=== PATIENT | male | born 1950 | race Caucasian/White ===

== ENCOUNTER 2025-02-23 00:30 | Inpatient (IN) | payer MEDICARE ==
[~2025-02-23] VITALS: Ht 182.9 cm; Wt 109.8 kg
[2025-02-23] VITALS (79 sets, daily range): BP systolic 101–141; BP diastolic 56–94; PULSE 64–88; RESP 10–24; TEMP 36.114–37.39188; O2SAT 91–99
[2025-02-23] MEDS: SODIUM CHLORIDE 0.9% 500 ML IV ONE (01:21)
[2025-02-23] MEDS: ACETAMINOPHEN 325MG TABLET PO ONE (01:31)
[2025-02-23 02:29] LABS: CREATININE 1.4 mg/dL (0.6-1.3); INR 1.1
[2025-02-23 02:30] LABS: UREA NITROGEN BLOOD 18 mg/dL (9-23)
[2025-02-23 02:31] LABS: ASPARTATE AMINOTRANSFERASE 31 IU/L (<34); BILIRUBIN DIRECT 0.4 mg/dL (<=3.0); TROPONIN I HIGH SENSITIVITY 8 ng/L (3.0-53)
[2025-02-23 02:32] LABS: BILIRUBIN TOTAL 1.2 mg/dL (0.1-1.0); PROTEIN TOTAL 6.3 g/dL (6.0-8.3)
[2025-02-23] MEDS: LEVETIRACETAM 500MG PREMIX 100 ML IV NR ×2 (03:06→09:11)
[2025-02-23] MEDS: HUMAN-LANS PROTHROMBIN CPLX (PCC) 1000 UNITS VIAL IV NR (03:41)
[2025-02-23] MEDS ORDERED: POTASSIUM CHLORIDE 40 MEQ in DEXT 5% WATER 230 ML IV ONE ×2 (03:45→11:30)
[2025-02-23] MEDS ORDERED: ONDANSETRON HCL 4MG/2ML INJ IV PRN (03:45)
[2025-02-23] MEDS ORDERED: DEXTROSE 50% WATER 50ML SYRINGE IV PRN (03:45)
[2025-02-23] MEDS ORDERED: DOCUSATE SODIUM 100MG CAPSULE PO PRN (03:45)
[2025-02-23] MEDS ORDERED: MAGNESIUM/ALUMINUM HYDROXIDE/SIMETHICONE 30ML UDC PO PRN (03:45)
[2025-02-23] MEDS ORDERED: GUAIFENESIN 200MG/10ML SUGAR FREE UDC PO PRN (03:45)
[2025-02-23 03:47] LABS: INFLUENZA TYPE A Presumptive Negative (Pres. Neg.)
[2025-02-23 03:48] LABS: INFLUENZA TYPE B Presumptive Negative (Pres. Neg.)
[2025-02-23 04:17] LABS: BASOPHILS % 0.1 % (0.0-2.0); EOSINOPHILS % 0.0 % (0.0-5.0); HEMATOCRIT. 41.1 % (42.0-52.0); HEMOGLOBIN. 13.6 g/dL (14.0-18.0); LYMPHOCYTES % 7.8 % (20.0-50.0); MEAN PLATELET VOLUME 6.2 fl (7.4-10.4); MONOCYTES % 14.6 % (2.0-8.0); NEUTROPHILS % 77.5 % (40.0-76.0); PLATELET 125 x1000/uL (130-400); RED BLOOD CELL COUNT 4.21 mill/uL (4.7-6.1); RED CELL DISTRIBUTION WIDTH 14.7 % (11.6-14.6)
[2025-02-23 04:35] LABS: TROPONIN I HIGH SENSITIVITY 9 ng/L (3.0-53)
[2025-02-23 04:36] LABS: PHOSPHORUS 4.1 mg/dL (2.5-4.9)
[2025-02-23] MEDS: KCL 20MEQ/100ML X 2 FOR TOTAL KCL 40MEQ/200ML IV SCH ×2 (05:04→12:36)
[2025-02-23] MEDS: POTASSIUM CHLORIDE 20MEQ TABLET SR PO NR (05:05)
[2025-02-23] MEDS: LACTATED RINGERS 1,000 ML IV ONE (05:05)
[2025-02-23] MEDS: BLOOD SUGAR DIAGNOSTIC STRIP TEST SCH (06:20)
[2025-02-23] MEDS: INSULIN LISPRO 100 UNITS/ML SUBCUT SCH (06:21)
[2025-02-23] MEDS: LACTATED RINGERS 1,000 ML IV SCH (07:07)
[2025-02-23] MEDS: DEXAMETHASONE 4MG/ML 1ML VIAL IV SCH (07:07)
[2025-02-23] MEDS ORDERED: LEVETIRACETAM 500MG in NACL 100ML PREMIX IV SCH ×2 (08:15→09:00)
[2025-02-23 08:24] LABS: CLARITY URINE CLEAR (CLEAR); COLOR URINE YELLOW (YELLOW); GLUCOSE URINE 3+ (NEGATIVE); KETONES URINE 1+ (NEGATIVE); LEUKOCYTE ESTERASE URINE NEGATIVE (NEGATIVE); NITRITE URINE NEGATIVE (NEGATIVE); OCCULT BLOOD URINE 1+ (NEGATIVE); PH URINE 6.0 (4.5-8.0); PROTEIN URINE 1+ (NEGATIVE); SPECIFIC GRAVITY URINE 1.030 (1.005-1.030); UROBILINOGEN URINE 0.2 E.U./dL (0.2-1.0)
[2025-02-23 08:38] LABS: *AMPHETAMINES SCREEN URINE NEGATIVE (NEGATIVE); *BENZODIAZEPINES SCREEN URINE NEGATIVE (NEGATIVE)
[2025-02-23 08:39] LABS: *BARBITURATES SCREEN URINE NEGATIVE (NEGATIVE); *COCAINE SCREEN URINE NEGATIVE (NEGATIVE); CANNABINOID URINE SCREEN NEGATIVE (NEGATIVE); ECSTASY MDMA SCREEN URINE NEGATIVE (NEGATIVE); METHADONE URINE SCREEN NEGATIVE (NEGATIVE); OPIATES URINE SCREEN NEGATIVE (NEGATIVE); PHENCYCLIDINE URINE SCREEN NEGATIVE (NEGATIVE)
[2025-02-23 08:47] LABS: SQUAMOUS EPITHELIAL CELL URINE NONE SEEN /lpf (RARE/1+)
[2025-02-23 08:48] LABS: BACTERIA URINE NONE SEEN; RBC URINE 0-2 /hpf (0-2); WBC URINE 0-2 /hpf (0-2); YEAST URINE FEW
[2025-02-23] MEDS ORDERED: HUMAN-LANS PROTHROMBIN CPLX (PCC) 1000 UNITS VIAL IV NR (09:00)
[2025-02-23] MEDS ORDERED: LEVETIRACETAM 1,000MG in NACL 100ML PREMIX IV SCH (09:00)
[2025-02-23] MEDS ORDERED: LEVETIRACETAM 500MG PREMIX 100 ML IV SCH (09:00)
[2025-02-23] MEDS: PANTOPRAZOLE SODIUM 40 MG/VIAL IV SCH (09:11)
[2025-02-23] MEDS: LEVETIRACETAM 500MG PREMIX 100 ML IV SCH (09:11)
[2025-02-23 10:39] LABS: HEMATOCRIT. 40.5 % (42.0-52.0); HEMOGLOBIN. 13.6 g/dL (14.0-18.0); MEAN PLATELET VOLUME 6.3 fl (7.4-10.4); PLATELET 122 x1000/uL (130-400); RED BLOOD CELL COUNT 4.11 mill/uL (4.7-6.1); RED CELL DISTRIBUTION WIDTH 14.7 % (11.6-14.6)
[2025-02-23 10:59] LABS: CREATININE 1.1 mg/dL (0.6-1.3); TRIGLYCERIDE 117 mg/dL (0-150); UREA NITROGEN BLOOD 21 mg/dL (9-23)
[2025-02-23 11:00] LABS: LDL CHOLESTEROL 41 mg/dL (5-100)
[2025-02-23 11:03] LABS: T4 FREE 1.19 ng/dL (0.89-1.76)
[2025-02-23] MEDS ORDERED: PIOG45TA62 MT (14:19)
[2025-02-23] MEDS ORDERED: APIX5TAB MT (14:19)
[2025-02-23] MEDS ORDERED: ATOR-2 MT (14:19)
[2025-02-23] MEDS ORDERED: EMPA10TA MT (14:19)
[2025-02-23] MEDS ORDERED: DILT240C96 PO (14:19)
[2025-02-23] MEDS ORDERED: CHLO25TA2 MT (14:19)
[2025-02-23] MEDS ORDERED: CHOL200016 (14:19)
[2025-02-23] MEDS ORDERED: LATA2.5D7 EACHEYE (14:19)
[2025-02-23] MEDS ORDERED: EZET10TA81 MT (14:19)
[2025-02-23] MEDS ORDERED: OMEG100036 MT (14:19)
[2025-02-23] MEDS ORDERED: POTA15TA PO (14:19)
[2025-02-23] MEDS ORDERED: FAMO20TA8 MT (14:19)
[2025-02-23] MEDS ORDERED: GABA-1180 MT (14:19)
[2025-02-23] MEDS ORDERED: CYAN10003 SL (14:19)
[2025-02-23] MEDS ORDERED: SITA100T11 MT (14:19)
[2025-02-23] MEDS ORDERED: MIRA25TA MT (14:19)
[2025-02-23 17:03] LABS: INR 1.0
[2025-02-23 21:03] LABS: BAND% 1.0 % (1.0-6.0); LYMPHOCYTES % MANUAL 15.0 % (20.0-50.0); MONOCYTES % MANUAL 13.0 % (2.0-8.0); NEUTROPHILS % MANUAL 71.0 % (45.0-75.0); PLATELET ESTIMATE DECREASED
[2025-02-23] MEDS: IPRATROPIUM/ALBUTEROL 0.5-3(2.5)MG/3ML NEB HHN SCH (21:37)
[2025-02-24] VITALS (83 sets, daily range): BP systolic 111–143; BP diastolic 58–108; PULSE 60–98; RESP 14–30; TEMP 36.5–37; O2SAT 87–97
[2025-02-24] MEDS: KCL 20MEQ/100ML PREMIX 100 ML IV NR (01:54)
[2025-02-24] MEDS ORDERED: THROMBIN (BOVINE) 5000 UNITS/VIAL TOP ONE ×2 (06:11→08:09)
[2025-02-24] MEDS ORDERED: LIDOCAINE HCL/EPINEPHRINE 1%-EPI 1:100,000 20ML VIAL ONE (06:12)
[2025-02-24] MEDS ORDERED: GENTAMICIN SULF 40MG/ML 2ML VIAL ONE (06:12)
[2025-02-24] MEDS ORDERED: BACITRACIN 14GM TUBE TOP ONE (06:12)
[2025-02-24 06:16] LABS: BASOPHILS % 0.2 % (0.0-2.0); EOSINOPHILS % 0.0 % (0.0-5.0); HEMATOCRIT. 40.2 % (42.0-52.0); HEMOGLOBIN. 13.1 g/dL (14.0-18.0); LYMPHOCYTES % 7.2 % (20.0-50.0); MEAN PLATELET VOLUME 6.3 fl (7.4-10.4); MONOCYTES % 9.0 % (2.0-8.0); NEUTROPHILS % 83.6 % (40.0-76.0); PLATELET 142 x1000/uL (130-400); RED BLOOD CELL COUNT 4.03 mill/uL (4.7-6.1); RED CELL DISTRIBUTION WIDTH 14.7 % (11.6-14.6)
[2025-02-24 06:38] LABS: CREATININE 1.0 mg/dL (0.6-1.3)
[2025-02-24 06:39] LABS: UREA NITROGEN BLOOD 26 mg/dL (9-23)
[2025-02-24] MEDS ORDERED: ETOMIDATE 2MG/ML 10ML VIAL IV ONE (06:59)
[2025-02-24] MEDS ORDERED: FENTANYL CITRATE/PF 50MCG/ML 2ML VIAL ONE (06:59)
[2025-02-24] MEDS ORDERED: MIDAZOLAM HCL 2 MG/2 ML VIAL ONE (06:59)
[2025-02-24] MEDS ORDERED: PROPOFOL 200MG/20ML VIAL IV ONE ×2 (06:59→07:41)
[2025-02-24] MEDS ORDERED: DEXAMETHASONE 4MG/ML 1ML VIAL ONE (06:59)
[2025-02-24] MEDS ORDERED: ONDANSETRON HCL 4MG/2ML INJ ONE (06:59)
[2025-02-24] MEDS ORDERED: ROCURONIUM BROMIDE 10MG/ML VIAL 5ML IV ONE (07:10)
[2025-02-24] MEDS ORDERED: CLINDAMYCIN 900MG PREMIX 50 ML IV ONE (07:36)
[2025-02-24] MEDS ORDERED: HYDROMORPHONE HCL/PF 2MG/ML INJ ONE (07:47)
[2025-02-24] MEDS ORDERED: PHENYTOIN SODIUM 100MG/2ML VIAL IV ONE (08:17)
[2025-02-24] MEDS: CLINDAMYCIN 600 MG in DEXTROSE 5% WATER 50 ML IV SCH (08:45)
[2025-02-24] MEDS: MORPHINE SULFATE 4 MG/ML INJ (FOR IV/IM USE) IV PRN (09:36)
[2025-02-24] MEDS ORDERED: NALOXONE HCL 0.4MG/ML VIAL IV PRN (09:45)
[2025-02-24] MEDS: DEXT 5%/LACTATED RINGERS 1,000 ML IV SCH (09:56)
[2025-02-24] MEDS: NICARDIPINE 100 MG in SODIUM CHLORIDE 0.9% 60 ML IV PRN (09:57)
[2025-02-24] MEDS ORDERED: NALOXONE HCL 0.4MG/ML 1ML VIAL IV SCH (10:15)
[2025-02-24 10:25] LABS: BG BASE EXCESS -3.0 mmol/L (-2.0-3.0); BG CARBOXYHEMOGLOBIN 1.1 % (0.5-1.5); BG DEOXYHEMOGLOBIN 4.8 % (0.0-5.0); BG FLOW(L/min) 15.00 L/min; BG FRACTION INSPIRED OXYGEN 80; BG HCO3 ACT 21.3 mmol/L (21.0-28.0); BG METHEMOGLOBIN 0.3 % (0.5-1.5); BG OXYGEN SATURATION 95.1 % (94.0-98.0); BG OXYHEMOGLOBIN 93.8 % (94.0-98.0); BG PCO2 35.9 mmHg (35.0-48.0); BG PH 7.391 (7.350-7.450); BG PO2 81.0 mmHg (83.0-108.0); BG SAMPLE SITE ALINE; BG TOTAL HEMOGLOBIN 14.0 g/dL (13.5-17.5); BG VENT MODE MASK - PARTIAL NRB
[2025-02-24] MEDS ORDERED: ALBUTEROL 6.7GM HFA INHALER ONE (12:20)
[2025-02-24] MEDS ORDERED: ALBUTEROL (0.083%) 2.5MG/3ML NEB ONE (12:22)
[2025-02-24] MEDS: CLINDAMYCIN 600MG PREMIX 50 ML IV SCH (15:24)
[2025-02-24] MEDS: PHENYTOIN SODIUM 100MG/2ML VIAL IV SCH (15:24)
[2025-02-25] VITALS (92 sets, daily range): BP systolic 113–143; BP diastolic 60–105; PULSE 71–99; RESP 14–30; TEMP 36.5–36.8; O2SAT 88–99
[2025-02-25 05:45] LABS: HEMATOCRIT. 39.7 % (42.0-52.0); HEMOGLOBIN. 13.2 g/dL (14.0-18.0); MEAN PLATELET VOLUME 6.2 fl (7.4-10.4); PLATELET 171 x1000/uL (130-400); RED BLOOD CELL COUNT 4.00 mill/uL (4.7-6.1); RED CELL DISTRIBUTION WIDTH 15.2 % (11.6-14.6)
[2025-02-25 05:56] LABS: CREATININE 1.0 mg/dL (0.6-1.3); UREA NITROGEN BLOOD 32 mg/dL (9-23)
[2025-02-25 05:58] LABS: PHOSPHORUS 2.5 mg/dL (2.5-4.9)
[2025-02-25 09:13] LABS: BAND% 4.0 % (1.0-6.0); LYMPHOCYTES % MANUAL 5.0 % (20.0-50.0); MONOCYTES % MANUAL 12.0 % (2.0-8.0); NEUTROPHILS % MANUAL 79.0 % (45.0-75.0); NUCLEATED RED BLOOD CELLS 1 /100 WBC; PLATELET ESTIMATE NORMAL
[2025-02-25 10:03] LABS: BG BASE EXCESS 2.2 mmol/L (-2.0-3.0); BG CARBOXYHEMOGLOBIN 0.9 % (0.5-1.5); BG DEOXYHEMOGLOBIN 9.4 % (0.0-5.0); BG FLOW(L/min) 6.00 L/min; BG FRACTION INSPIRED OXYGEN 44; BG HCO3 ACT 25.6 mmol/L (21.0-28.0); BG METHEMOGLOBIN 0.3 % (0.5-1.5); BG OXYGEN SATURATION 90.5 % (94.0-98.0); BG OXYHEMOGLOBIN 89.4 % (94.0-98.0); BG PCO2 36.0 mmHg (35.0-48.0); BG PH 7.470 (7.350-7.450); BG PO2 55.9 mmHg (83.0-108.0); BG SAMPLE SITE RIGHT RADIAL; BG TOTAL HEMOGLOBIN 14.3 g/dL (13.5-17.5); BG VENT MODE NASAL CANNULA
[2025-02-25] MEDS: POTASSIUM CHLORIDE 20MEQ/PACKET PO SCH (12:00)
[2025-02-25] MEDS: DEXAMETHASONE 4MG/ML 1ML VIAL IV SCH (12:40)
[2025-02-25] MEDS: IPRATROPIUM/ALBUTEROL 0.5-3(2.5)MG/3ML NEB HHN SCH (14:11)
[2025-02-26] VITALS (67 sets, daily range): BP systolic 119–153; BP diastolic 62–78; PULSE 89–113; RESP 15–29; TEMP 36.5–36.9; O2SAT 90–97
[2025-02-26] MEDS: KCL 20MEQ/100ML PREMIX 100 ML IV SCH (10:42)
[2025-02-26] MEDS ORDERED: POLYMYXIN B SULFATE 500000 UNITS/VIAL ONE (12:14)
[2025-02-26] MEDS ORDERED: THROMBIN (BOVINE) 5000 UNITS/VIAL TOP ONE (12:14)
[2025-02-26] MEDS ORDERED: GENTAMICIN SULF 40MG/ML 2ML VIAL ONE (12:15)
[2025-02-26] MEDS ORDERED: LIDOCAINE HCL/EPINEPHRINE 1%-EPI 1:100,000 20ML VIAL ONE (12:15)
[2025-02-26 12:28] LABS: PLATELET 195 x1000/uL (130-400); RED BLOOD CELL COUNT 4.40 mill/uL (4.7-6.1); RED CELL DISTRIBUTION WIDTH 15.1 % (11.6-14.6)
[2025-02-26 12:32] LABS: CREATININE 0.9 mg/dL (0.6-1.3); UREA NITROGEN BLOOD 37 mg/dL (9-23)
[2025-02-26] MEDS ORDERED: PROPOFOL 200MG/20ML VIAL IV ONE ×2 (12:55→14:19)
[2025-02-26] MEDS ORDERED: LIDOCAINE HCL 1% 10 MG/ML 10ML VIAL ONE (12:55)
[2025-02-26] MEDS ORDERED: ACETAMINOPHEN 1000MG/100ML 100 ML IV ONE (12:56)
[2025-02-26] MEDS ORDERED: ROCURONIUM BROMIDE 10MG/ML VIAL 5ML IV ONE ×2 (12:56→14:03)
[2025-02-26] MEDS ORDERED: CLINDAMYCIN 900MG PREMIX 50 ML IV ONE (12:56)
[2025-02-26] MEDS ORDERED: PHENYLEPHRINE HCL 10MG/ML 1ML IV ONE (13:00)
[2025-02-26] MEDS ORDERED: FENTANYL CITRATE/PF 50MCG/ML 2ML VIAL ONE ×2 (13:06→14:01)
[2025-02-26] MEDS ORDERED: NICARDIPINE 40MG/200ML PREMIX 200 ML IV ONE (13:22)
[2025-02-26] MEDS ORDERED: BACITRACIN 14GM TUBE TOP ONE (13:56)
[2025-02-26] MEDS ORDERED: ONDANSETRON HCL 4MG/2ML INJ ONE (14:57)
[2025-02-26] MEDS: CLINDAMYCIN 600MG PREMIX 50 ML IV SCH (17:44)
[2025-02-26] MEDS ORDERED: MANNITOL 20% (20GM/100ML) BAG 500ML PREMIX IV ONE (19:45)
[2025-02-26] MEDS: DEXAMETHASONE 10 MG/ML VIAL IV SCH (19:50)
[2025-02-26] MEDS: MANNITOL 20% 125 ML IV SCH (21:20)
[2025-02-27] VITALS (93 sets, daily range): BP systolic 110–150; BP diastolic 56–85; PULSE 88–137; RESP 16–45; TEMP 36.4–36.9; O2SAT 89–99
[2025-02-27 05:36] LABS: HEMATOCRIT. 41.8 % (42.0-52.0); HEMOGLOBIN. 14.0 g/dL (14.0-18.0); MEAN PLATELET VOLUME 6.2 fl (7.4-10.4); PLATELET 232 x1000/uL (130-400); RED BLOOD CELL COUNT 4.19 mill/uL (4.7-6.1); RED CELL DISTRIBUTION WIDTH 15.7 % (11.6-14.6)
[2025-02-27 05:42] LABS: CREATININE 1.0 mg/dL (0.6-1.3); PHENYTOIN 5.1 ug/mL (10-20); UREA NITROGEN BLOOD 39 mg/dL (9-23)
[2025-02-27] MEDS ORDERED: DEXTROSE 50% WATER 50ML SYRINGE IV PRN (08:30)
[2025-02-27] MEDS ORDERED: LIDOCAINE HCL 1% 20ML VIAL ONE (08:37)
[2025-02-27 10:54] LABS: BAND% 3.0 % (1.0-6.0); EOSINOPHILS % MANUAL 1.0 % (0.0-5.0); LYMPHOCYTES % MANUAL 11.0 % (20.0-50.0); MONOCYTES % MANUAL 4.0 % (2.0-8.0); NEUTROPHILS % MANUAL 81.0 % (45.0-75.0); PLATELET ESTIMATE NORMAL
[2025-02-27] MEDS: PHENYTOIN SODIUM 500 MG in SODIUM CHLORIDE 0.9% 50 ML IV NR (11:38)
[2025-02-27] MEDS: BLOOD SUGAR DIAGNOSTIC STRIP TEST SCH (12:00)
[2025-02-27] MEDS: INSULIN LISPRO 100 UNITS/ML SUBCUT SCH (12:05)
[2025-02-27 17:14] LABS: BG BASE EXCESS 1.4 mmol/L (-2.0-3.0); BG CARBOXYHEMOGLOBIN 0.3 % (0.5-1.5); BG DEOXYHEMOGLOBIN 0.9 % (0.0-5.0); BG FLOW(L/min) 15.00 L/min; BG FRACTION INSPIRED OXYGEN 100; BG HCO3 ACT 24.2 mmol/L (21.0-28.0); BG METHEMOGLOBIN 0.0 % (0.5-1.5); BG OXYGEN SATURATION 99.1 % (94.0-98.0); BG OXYHEMOGLOBIN 98.8 % (94.0-98.0); BG PCO2 33.0 mmHg (35.0-48.0); BG PH 7.484 (7.350-7.450); BG PO2 153.6 mmHg (83.0-108.0); BG SAMPLE SITE ALINE; BG TOTAL HEMOGLOBIN 13.1 g/dL (13.5-17.5); BG VENT MODE MASK - NRB
[2025-02-28] VITALS (111 sets, daily range): BP systolic 115–206; BP diastolic 55–70; PULSE 103–135; RESP 14–36; TEMP 36.7–37.6; O2SAT 77–98
[2025-02-28] MEDS: INSULIN LISPRO 100 UNITS/ML SUBCUT SCH ×2 (01:09→13:41)
[2025-02-28 05:09] LABS: HEMATOCRIT. 40.9 % (42.0-52.0); HEMOGLOBIN. 13.3 g/dL (14.0-18.0); MEAN PLATELET VOLUME 6.5 fl (7.4-10.4); PLATELET 199 x1000/uL (130-400); RED BLOOD CELL COUNT 4.08 mill/uL (4.7-6.1); RED CELL DISTRIBUTION WIDTH 16.5 % (11.6-14.6)
[2025-02-28 05:29] LABS: CREATININE 1.2 mg/dL (0.6-1.3); UREA NITROGEN BLOOD 41 mg/dL (9-23)
[2025-02-28 05:31] LABS: PHOSPHORUS 1.7 mg/dL (2.5-4.9)
[2025-02-28] MEDS ORDERED: PROPOFOL 10MG/ML 100ML 100 ML IV PRN (08:00)
[2025-02-28] MEDS ORDERED: DEXTROSE 50% WATER 50ML SYRINGE IV PRN (09:00)
[2025-02-28] MEDS: METHYLPREDNISOLONE SOD SUCC 125MG/2ML (ACT-O-VIAL) IV SCH (09:56)
[2025-02-28 09:57] LABS: BG BASE EXCESS 1.5 mmol/L (-2.0-3.0); BG CARBOXYHEMOGLOBIN 0.7 % (0.5-1.5); BG DEOXYHEMOGLOBIN 4.2 % (0.0-5.0); BG FRACTION INSPIRED OXYGEN 100; BG HCO3 ACT 26.9 mmol/L (21.0-28.0); BG METHEMOGLOBIN 0.3 % (0.5-1.5); BG OXYGEN SATURATION 95.8 % (94.0-98.0); BG OXYHEMOGLOBIN 94.8 % (94.0-98.0); BG PCO2 45.0 mmHg (35.0-48.0); BG PEEP (cmH2O) 5.0 cmH2O; BG PH 7.394 (7.350-7.450); BG PO2 82.7 mmHg (83.0-108.0); BG SAMPLE SITE RIGHT RADIAL; BG TIDAL VOLUME(mL) 450.0 mL; BG TOTAL HEMOGLOBIN 14.7 g/dL (13.5-17.5); BG VENT MODE VENT - AC; BG VENT RATE 18.0 set
[2025-02-28] MEDS ORDERED: MORPHINE SULFATE 4 MG/ML INJ (FOR IV/IM USE) IV NR (10:15)
[2025-02-28] MEDS ORDERED: MORPHINE SULFATE 10 MG/ML INJ (NOT FOR IM USE) IV ONE (10:15)
[2025-02-28] MEDS: MORPHINE SULFATE 4 MG/ML INJ (FOR IV/IM USE) IV NR (11:43)
[2025-02-28] MEDS: CLINDAMYCIN 600MG PREMIX 50 ML IV SCH (13:39)
[2025-02-28 13:50] LABS: BAND% 27.0 % (1.0-6.0); LYMPHOCYTES % MANUAL 10.0 % (20.0-50.0); METAMYELOCYTES % 1.0 % (0-0); MONOCYTES % MANUAL 7.0 % (2.0-8.0); MYELOCYTES % 1.0 % (0-0); NEUTROPHILS % MANUAL 54.0 % (45.0-75.0); NUCLEATED RED BLOOD CELLS 1 /100 WBC; PLATELET ESTIMATE NORMAL
[2025-02-28] MEDS: ACETAMINOPHEN 325MG TABLET PO PRN (14:31)
[2025-02-28] MEDS: CLONIDINE 0.1MG TABLET PO PRN (14:32)
[2025-02-28] MEDS: CLINDAMYCIN 600 MG in DEXTROSE 5% WATER 50 ML IV SCH (20:33)
[2025-03-01] VITALS (109 sets, daily range): BP systolic 133–176; BP diastolic 59–79; PULSE 101–126; RESP 20–56; TEMP 37.1–37.4; O2SAT 93–98
[2025-03-01] MEDS ORDERED: INSULIN LISPRO 100 UNITS/ML SUBCUT SCH
[2025-03-01] MEDS: INSULIN LISPRO 100 UNITS/ML SUBCUT SCH (05:27)
[2025-03-01 08:04] LABS: PLATELET 121 x1000/uL (130-400); RED BLOOD CELL COUNT 4.15 mill/uL (4.7-6.1); RED CELL DISTRIBUTION WIDTH 17.5 % (11.6-14.6)
[2025-03-01 08:26] LABS: CREATININE 1.3 mg/dL (0.6-1.3); UREA NITROGEN BLOOD 39.0 mg/dL (9-23)
[2025-03-01 09:35] LABS: BG BASE EXCESS 3.6 mmol/L (-2.0-3.0); BG CARBOXYHEMOGLOBIN 1.0 % (0.5-1.5); BG DEOXYHEMOGLOBIN 1.0 % (0.0-5.0); BG FRACTION INSPIRED OXYGEN 90; BG HCO3 ACT 29.5 mmol/L (21.0-28.0); BG METHEMOGLOBIN 0.3 % (0.5-1.5); BG OXYGEN SATURATION 99.0 % (94.0-98.0); BG OXYHEMOGLOBIN 97.7 % (94.0-98.0); BG PCO2 49.2 mmHg (35.0-48.0); BG PEEP (cmH2O) 8.0 cmH2O; BG PH 7.395 (7.350-7.450); BG PO2 142.8 mmHg (83.0-108.0); BG SAMPLE SITE RIGHT RADIAL; BG TIDAL VOLUME(mL) 450.0 mL; BG TOTAL HEMOGLOBIN 14.1 g/dL (13.5-17.5); BG VENT MODE VENT - AC; BG VENT RATE 18.0 set
[2025-03-01] MEDS ORDERED: NALOXONE HCL 0.4MG/ML VIAL IV PRN (11:00)
[2025-03-01] MEDS: MORPHINE SULFATE 4 MG/ML INJ (FOR IV/IM USE) IV PRN (11:35)
[2025-03-01] MEDS: DEXT 5%/0.45% NACL 1000ML 1,000 ML IV SCH (13:02)
[2025-03-01 16:07] LABS: SODIUM URINE RANDOM < 10 mEq/L
[2025-03-01 16:17] LABS: OSMOLALITY URINE 499 mOsm/kg (500-850)
[2025-03-01 17:39] LABS: CREATININE 1.5 mg/dL (0.6-1.3); UREA NITROGEN BLOOD 47.0 mg/dL (9-23)
[2025-03-01] MEDS: INSULIN GLARGINE 100 UNITS/ML SUBCUT SCH (22:20)
[2025-03-02] VITALS (105 sets, daily range): BP systolic 124–157; BP diastolic 58–71; PULSE 96–112; RESP 18–37; TEMP 37.2–37.8; O2SAT 94–97
[2025-03-02 05:19] LABS: HEMATOCRIT. 40.0 % (42.0-52.0); HEMOGLOBIN. 12.4 g/dL (14.0-18.0); MEAN PLATELET VOLUME 7.8 fl (7.4-10.4); PLATELET 95 x1000/uL (130-400); RED BLOOD CELL COUNT 3.84 mill/uL (4.7-6.1); RED CELL DISTRIBUTION WIDTH 17.2 % (11.6-14.6)
[2025-03-02 05:42] LABS: CREATININE 1.8 mg/dL (0.6-1.3); UREA NITROGEN BLOOD 64.0 mg/dL (9-23)
[2025-03-02] MEDS: IPRATROPIUM/ALBUTEROL 0.5-3(2.5)MG/3ML NEB HHN PRN (09:03)
[2025-03-02 10:31] LABS: BG BASE EXCESS 1.5 mmol/L (-2.0-3.0); BG CARBOXYHEMOGLOBIN 0.7 % (0.5-1.5); BG DEOXYHEMOGLOBIN 3.1 % (0.0-5.0); BG FRACTION INSPIRED OXYGEN 50; BG HCO3 ACT 27.5 mmol/L (21.0-28.0); BG METHEMOGLOBIN 0.4 % (0.5-1.5); BG OXYGEN SATURATION 96.9 % (94.0-98.0); BG OXYHEMOGLOBIN 95.8 % (94.0-98.0); BG PCO2 48.3 mmHg (35.0-48.0); BG PEEP (cmH2O) 8.0 cmH2O; BG PH 7.373 (7.350-7.450); BG PO2 88.5 mmHg (83.0-108.0); BG SAMPLE SITE RIGHT RADIAL; BG TIDAL VOLUME(mL) 450.0 mL; BG TOTAL HEMOGLOBIN 14.5 g/dL (13.5-17.5); BG VENT MODE VENT - AC; BG VENT RATE 18.0 set
[2025-03-02] MEDS: INSULIN GLARGINE 100 UNITS/ML SUBCUT SCH (12:40)
[2025-03-02] MEDS ORDERED: DEXTROSE 5% WATER 1,000 ML IV SCH (13:00)
[2025-03-02] MEDS: CLINDAMYCIN 600MG PREMIX 50 ML IV SCH (13:07)
[2025-03-02] MEDS: DEXT 5%/0.45% NACL 1000ML 1,000 ML IV SCH (13:07)
[2025-03-02] MEDS: SODIUM CHLORIDE 0.45% 1,000 ML IV SCH (21:05)
[2025-03-03] VITALS (103 sets, daily range): BP systolic 119–158; BP diastolic 62–75; PULSE 83–103; RESP 13–35; TEMP 36.2–37.4; O2SAT 93–100
[2025-03-03 07:19] LABS: BAND% 5.0 % (1.0-6.0); LYMPHOCYTES % MANUAL 2.0 % (20.0-50.0); MONOCYTES % MANUAL 2.0 % (2.0-8.0); NEUTROPHILS % MANUAL 91.0 % (45.0-75.0); PLATELET ESTIMATE SLIGHTLY DECREASED
[2025-03-03 08:31] LABS: PLATELET 82 x1000/uL (130-400); RED BLOOD CELL COUNT 3.88 mill/uL (4.7-6.1); RED CELL DISTRIBUTION WIDTH 17.3 % (11.6-14.6)
[2025-03-03 08:32] LABS: CREATININE 1.7 mg/dL (0.6-1.3); UREA NITROGEN BLOOD 70.0 mg/dL (9-23)
[2025-03-03] MEDS: DEXTROSE 5% WATER 1,000 ML IV SCH (10:06)
[2025-03-03] MEDS: DESMOPRESSIN ACETATE 4MCG/ML AMP IV SCH (13:15)
[2025-03-03] MEDS ORDERED: DESMOPRESSIN ACETATE 4MCG/ML AMP IV SCH (21:00)
[2025-03-04] VITALS (107 sets, daily range): BP systolic 112–159; BP diastolic 57–72; PULSE 86–100; RESP 9–34; TEMP 36.7–38.3; O2SAT 95–100
[2025-03-04 05:49] LABS: HEMATOCRIT. 41.0 % (42.0-52.0); HEMOGLOBIN. 12.8 g/dL (14.0-18.0); MEAN PLATELET VOLUME 9.1 fl (7.4-10.4); PLATELET 57 x1000/uL (130-400); RED BLOOD CELL COUNT 3.92 mill/uL (4.7-6.1); RED CELL DISTRIBUTION WIDTH 17.3 % (11.6-14.6)
[2025-03-04 06:01] LABS: CREATININE 1.0 mg/dL (0.6-1.3); UREA NITROGEN BLOOD 33 mg/dL (9-23)
[2025-03-04 09:48] LABS: BG BASE EXCESS 5.9 mmol/L (-2.0-3.0); BG CARBOXYHEMOGLOBIN 1.2 % (0.5-1.5); BG DEOXYHEMOGLOBIN 3.8 % (0.0-5.0); BG FRACTION INSPIRED OXYGEN 100; BG HCO3 ACT 32.6 mmol/L (21.0-28.0); BG METHEMOGLOBIN 0.3 % (0.5-1.5); BG OXYGEN SATURATION 96.1 % (94.0-98.0); BG OXYHEMOGLOBIN 94.7 % (94.0-98.0); BG PCO2 56.8 mmHg (35.0-48.0); BG PEEP (cmH2O) 8.0 cmH2O; BG PH 7.377 (7.350-7.450); BG PO2 83.6 mmHg (83.0-108.0); BG SAMPLE SITE RIGHT RADIAL; BG TIDAL VOLUME(mL) 450.0 mL; BG TOTAL HEMOGLOBIN 13.1 g/dL (13.5-17.5); BG VENT MODE VENT - AC; BG VENT RATE 18.0 set
[2025-03-04 12:01] LABS: INR 1.2
[2025-03-04 13:47] LABS: BAND% 21.0 % (1.0-6.0); LYMPHOCYTES % MANUAL 3.0 % (20.0-50.0); MONOCYTES % MANUAL 3.0 % (2.0-8.0); MYELOCYTES % 1.0 % (0-0); NEUTROPHILS % MANUAL 72.0 % (45.0-75.0); PLATELET ESTIMATE MARKEDLY DECREASED
[2025-03-04 17:58] LABS: CREATININE 1.3 mg/dL (0.6-1.3); UREA NITROGEN BLOOD 43.0 mg/dL (9-23)
[2025-03-04] MEDS: INSULIN GLARGINE 100 UNITS/ML SUBCUT SCH (22:17)
[2025-03-05] VITALS (110 sets, daily range): BP systolic 114–151; BP diastolic 55–118; PULSE 80–101; RESP 16–34; TEMP 35.9–39.2; O2SAT 95–100
[2025-03-05 06:52] LABS: CREATININE 1.5 mg/dL (0.6-1.3)
[2025-03-05 06:53] LABS: UREA NITROGEN BLOOD 67 mg/dL (9-23)
[2025-03-05 06:55] LABS: PHOSPHORUS 3.0 mg/dL (2.5-4.9)
[2025-03-05] MEDS: INSULIN GLARGINE 100 UNITS/ML SUBCUT SCH (09:17)
[2025-03-05 10:44] LABS: HEMATOCRIT. 40.2 % (42.0-52.0); HEMOGLOBIN. 12.1 g/dL (14.0-18.0); RED BLOOD CELL COUNT 3.76 mill/uL (4.7-6.1); RED CELL DISTRIBUTION WIDTH 17.9 % (11.6-14.6)
[2025-03-05 11:28] LABS: PLATELET 48 x1000/uL (130-400)
[2025-03-05 11:37] LABS: BAND% 34.0 % (1.0-6.0); LYMPHOCYTES % MANUAL 9.0 % (20.0-50.0); METAMYELOCYTES % 1.0 % (0-0); MONOCYTES % MANUAL 2.0 % (2.0-8.0); NEUTROPHILS % MANUAL 54.0 % (45.0-75.0)
[2025-03-05 11:40] LABS: PLATELET ESTIMATE DECREASED
[2025-03-05] MEDS: FAMOTIDINE 20MG TABLET PO SCH (13:32)
[2025-03-05] MEDS: DESMOPRESSIN ACETATE 4MCG/ML AMP IV SCH (21:16)
[2025-03-05 22:04] LABS: CREATININE 1.3 mg/dL (0.6-1.3); UREA NITROGEN BLOOD 48.0 mg/dL (9-23)
[2025-03-06] VITALS (106 sets, daily range): BP systolic 112–150; BP diastolic 52–86; PULSE 76–100; RESP 16–32; TEMP 36.6–37.2; O2SAT 92–100
[2025-03-06 07:47] LABS: HEMATOCRIT. 39.8 % (42.0-52.0); HEMOGLOBIN. 12.3 g/dL (14.0-18.0); MEAN PLATELET VOLUME 10.3 fl (7.4-10.4); RED BLOOD CELL COUNT 3.79 mill/uL (4.7-6.1); RED CELL DISTRIBUTION WIDTH 16.6 % (11.6-14.6)
[2025-03-06 07:49] LABS: CREATININE 1.2 mg/dL (0.6-1.3)
[2025-03-06 07:50] LABS: UREA NITROGEN BLOOD 48.0 mg/dL (9-23)
[2025-03-06 08:14] LABS: PLATELET 36 x1000/uL (130-400)
[2025-03-06 10:32] LABS: BG BASE EXCESS 5.3 mmol/L (-2.0-3.0); BG CARBOXYHEMOGLOBIN 2.6 % (0.5-1.5); BG DEOXYHEMOGLOBIN 6.3 % (0.0-5.0); BG FRACTION INSPIRED OXYGEN 40; BG HCO3 ACT 32.3 mmol/L (21.0-28.0); BG METHEMOGLOBIN 0.1 % (0.5-1.5); BG OXYGEN SATURATION 93.5 % (94.0-98.0); BG OXYHEMOGLOBIN 91.0 % (94.0-98.0); BG PCO2 58.9 mmHg (35.0-48.0); BG PEEP (cmH2O) 5.0 cmH2O; BG PH 7.357 (7.350-7.450); BG PO2 63.2 mmHg (83.0-108.0); BG SAMPLE SITE RIGHT RADIAL; BG TIDAL VOLUME(mL) 450.0 mL; BG TOTAL HEMOGLOBIN 12.1 g/dL (13.5-17.5); BG VENT MODE VENT - AC; BG VENT RATE 18.0 set
[2025-03-06] MEDS: ALBUTEROL (0.083%) 2.5MG/3ML NEB HHN SCH (14:42)
[2025-03-06] MEDS: ACETYLCYSTEINE 200MG/ML 20% VIAL 4ML INH SCH (14:43)
[2025-03-06 17:26] LABS: BAND% 2.0 % (1.0-6.0); LYMPHOCYTES % MANUAL 7.0 % (20.0-50.0); NEUTROPHILS % MANUAL 91.0 % (45.0-75.0)
[2025-03-06 17:27] LABS: PLATELET ESTIMATE MARKEDLY DECREASED
[2025-03-06 19:17] LABS: CREATININE 1.2 mg/dL (0.6-1.3); UREA NITROGEN BLOOD 52.0 mg/dL (9-23)
[2025-03-07] VITALS (103 sets, daily range): BP systolic 108–151; BP diastolic 57–71; PULSE 86–99; RESP 18–38; TEMP 36.5–37.11408; O2SAT 92–100
[2025-03-07 05:43] LABS: HEMATOCRIT. 33.9 % (42.0-52.0); HEMOGLOBIN. 10.8 g/dL (14.0-18.0); MEAN PLATELET VOLUME 9.9 fl (7.4-10.4); RED BLOOD CELL COUNT 3.23 mill/uL (4.7-6.1); RED CELL DISTRIBUTION WIDTH 16.6 % (11.6-14.6)
[2025-03-07 05:58] LABS: CREATININE 1.2 mg/dL (0.6-1.3); UREA NITROGEN BLOOD 48 mg/dL (9-23)
[2025-03-07 06:00] LABS: PHOSPHORUS 1.7 mg/dL (2.5-4.9)
[2025-03-07 06:59] LABS: PLATELET 38 x1000/uL (130-400)
[2025-03-07] MEDS: POTASSIUM PHOSPHATE 20 MMOL in DEXT 5% WATER 243.3333 ML IV NR (12:05)
[2025-03-07 16:35] LABS: BAND% 14.0 % (1.0-6.0); LYMPHOCYTES % MANUAL 2.0 % (20.0-50.0); MONOCYTES % MANUAL 2.0 % (2.0-8.0); NEUTROPHILS % MANUAL 82.0 % (45.0-75.0); PLATELET ESTIMATE DECREASED
[2025-03-07] MEDS: FAMOTIDINE 20MG TABLET PO SCH (20:13)
[2025-03-08] VITALS (105 sets, daily range): BP systolic 117–171; BP diastolic 47–77; PULSE 77–99; RESP 17–34; TEMP 36.5–37.8; O2SAT 94–100
[2025-03-08 05:26] LABS: HEMATOCRIT. 33.0 % (42.0-52.0); HEMOGLOBIN. 10.3 g/dL (14.0-18.0); MEAN PLATELET VOLUME 10.5 fl (7.4-10.4); PLATELET 51 x1000/uL (130-400); RED BLOOD CELL COUNT 3.19 mill/uL (4.7-6.1); RED CELL DISTRIBUTION WIDTH 16.3 % (11.6-14.6)
[2025-03-08 05:44] LABS: CREATININE 1.1 mg/dL (0.6-1.3)
[2025-03-08 05:45] LABS: UREA NITROGEN BLOOD 41 mg/dL (9-23)
[2025-03-08] MEDS ORDERED: POTASSIUM CHLORIDE 20MEQ/PACKET PO NR (05:45)
[2025-03-08 05:47] LABS: PHOSPHORUS 2.2 mg/dL (2.5-4.9)
[2025-03-08 17:34] LABS: LYMPHOCYTES % MANUAL 4.0 % (20.0-50.0); MONOCYTES % MANUAL 5.0 % (2.0-8.0); NEUTROPHILS % MANUAL 91.0 % (45.0-75.0)
[2025-03-08 17:35] LABS: PLATELET ESTIMATE MARKEDLY DECREASED
[2025-03-08 21:39] LABS: INR 0.9
[2025-03-09] VITALS (112 sets, daily range): BP systolic 124–165; BP diastolic 60–80; PULSE 73–103; RESP 0–36; TEMP 36.7–38.4; O2SAT 91–100
[2025-03-09] MEDS: DEXTROSE 5% WATER 1,000 ML IV SCH (06:36)
[2025-03-09 06:56] LABS: CREATININE 1.0 mg/dL (0.6-1.3); UREA NITROGEN BLOOD 33 mg/dL (9-23)
[2025-03-09 06:58] LABS: PHOSPHORUS 2.4 mg/dL (2.5-4.9)
[2025-03-09 06:59] LABS: HEMATOCRIT. 32.8 % (42.0-52.0); HEMOGLOBIN. 10.5 g/dL (14.0-18.0); MEAN PLATELET VOLUME 10.9 fl (7.4-10.4); RED BLOOD CELL COUNT 3.16 mill/uL (4.7-6.1); RED CELL DISTRIBUTION WIDTH 16.1 % (11.6-14.6)
[2025-03-09 08:04] LABS: PLATELET 45 x1000/uL (130-400)
[2025-03-09] MEDS: KCL 20MEQ/100ML PREMIX 100 ML IV SCH (09:32)
[2025-03-09 18:32] LABS: BAND% 9.0 % (1.0-6.0); LYMPHOCYTES % MANUAL 5.0 % (20.0-50.0); METAMYELOCYTES % 2.0 % (0-0); MONOCYTES % MANUAL 5.0 % (2.0-8.0); MYELOCYTES % 2.0 % (0-0); NEUTROPHILS % MANUAL 77.0 % (45.0-75.0)
[2025-03-09 18:33] LABS: PLATELET ESTIMATE DECREASED
[2025-03-10] VITALS (90 sets, daily range): BP systolic 98–183; BP diastolic 53–79; PULSE 75–107; RESP 10–32; TEMP 36.6–37.4; O2SAT 88–100
[2025-03-10 05:28] LABS: HEMATOCRIT. 32.3 % (42.0-52.0); HEMOGLOBIN. 10.3 g/dL (14.0-18.0); MEAN PLATELET VOLUME 10.7 fl (7.4-10.4); RED BLOOD CELL COUNT 3.16 mill/uL (4.7-6.1); RED CELL DISTRIBUTION WIDTH 15.8 % (11.6-14.6)
[2025-03-10 05:37] LABS: CREATININE 0.8 mg/dL (0.6-1.3); UREA NITROGEN BLOOD 23 mg/dL (9-23)
[2025-03-10 05:49] LABS: PLATELET 46 x1000/uL (130-400)
[2025-03-10] MEDS: POTASSIUM CHLORIDE 20MEQ/PACKET PO NR (06:30)
[2025-03-10] MEDS ORDERED: LIDOCAINE HCL/EPINEPHRINE 1%-EPI 1:100,000 20ML VIAL ONE (07:27)
[2025-03-10] MEDS ORDERED: POTASSIUM CHLORIDE 20 MEQ in DEXT 5% WATER 90 ML IV ONE (08:45)
[2025-03-10 09:33] LABS: BAND% 22.0 % (1.0-6.0); LYMPHOCYTES % MANUAL 10.0 % (20.0-50.0); MONOCYTES % MANUAL 3.0 % (2.0-8.0); NEUTROPHILS % MANUAL 65.0 % (45.0-75.0); PLATELET ESTIMATE MARKEDLY DECREASED
[2025-03-10] MEDS: KCL 20MEQ/100ML PREMIX 100 ML IV NR (10:06)
[2025-03-10 11:07] LABS: PLATELET 55 x1000/uL (130-400); RED BLOOD CELL COUNT 3.00 mill/uL (4.7-6.1); RED CELL DISTRIBUTION WIDTH 14.9 % (11.6-14.6)
[2025-03-11] VITALS (78 sets, daily range): BP systolic 101–150; BP diastolic 46–70; PULSE 83–115; RESP 12–32; TEMP 36.4–37.6; O2SAT 89–100
[2025-03-11 07:09] LABS: HEMATOCRIT. 28.4 % (42.0-52.0); HEMOGLOBIN. 9.3 g/dL (14.0-18.0); RED BLOOD CELL COUNT 2.79 mill/uL (4.7-6.1); RED CELL DISTRIBUTION WIDTH 15.5 % (11.6-14.6)
[2025-03-11 07:20] LABS: CREATININE 0.8 mg/dL (0.6-1.3); UREA NITROGEN BLOOD 20 mg/dL (9-23)
[2025-03-11 07:25] LABS: FOLIC ACID (FOLATE) SERUM 2.45 ng/mL (>5.38); VITAMIN B12 SERUM 1166 pg/mL (211-911)
[2025-03-11 08:22] LABS: ASPARTATE AMINOTRANSFERASE 87 IU/L (<34); BILIRUBIN DIRECT 0.2 mg/dL (<=3.0); BILIRUBIN TOTAL 0.3 mg/dL (0.1-1.0); PHOSPHORUS 2.4 mg/dL (2.5-4.9)
[2025-03-11 08:24] LABS: PROTEIN TOTAL 4.3 g/dL (6.0-8.3)
[2025-03-11] MEDS: KCL 20MEQ/100ML PREMIX 100 ML IV SCH (09:06)
[2025-03-11] MEDS: PANTOPRAZOLE SODIUM 40 MG/VIAL IV SCH (09:06)
[2025-03-11] MEDS: DEXTROSE 5% WATER 1,000 ML IV SCH (10:00)
[2025-03-11 10:26] LABS: PLATELET 56 x1000/uL (130-400)
[2025-03-11 10:28] LABS: BAND% 19.0 % (1.0-6.0); LYMPHOCYTES % MANUAL 7.0 % (20.0-50.0); METAMYELOCYTES % 1.0 % (0-0); MONOCYTES % MANUAL 2.0 % (2.0-8.0); MYELOCYTES % 2.0 % (0-0); NEUTROPHILS % MANUAL 69.0 % (45.0-75.0); PLATELET ESTIMATE DECREAS
[2025-03-11] MEDS ORDERED: LIDOCAINE HCL/EPINEPHRINE 1%-EPI 1:100,000 20ML VIAL ONE (11:38)
[2025-03-11] MEDS ORDERED: PROPOFOL 200MG/20ML VIAL IV ONE (12:09)
[2025-03-11] MEDS ORDERED: ROCURONIUM BROMIDE 10MG/ML VIAL 5ML IV ONE ×3 (12:09→13:28)
[2025-03-11] MEDS ORDERED: PHENYLEPHRINE HCL 10MG/ML 1ML IV ONE (12:09)
[2025-03-11] MEDS ORDERED: NON FORMULARY MED XX SCH (12:15)
[2025-03-11] MEDS ORDERED: FENTANYL CITRATE/PF 50MCG/ML 2ML VIAL ONE (12:41)
[2025-03-11] MEDS ORDERED: CLINDAMYCIN 900MG PREMIX 50 ML IV ONE (12:46)
[2025-03-11] MEDS: IRON SUCROSE COMPLEX 100 MG/5 ML ML IV SCH (14:43)
[2025-03-11] MEDS: LACTULOSE 20G/30ML UDC PO SCH (21:23)
[2025-03-12] VITALS (79 sets, daily range): BP systolic 87–146; BP diastolic 51–78; PULSE 75–112; RESP 15–34; TEMP 36.9–38.3; O2SAT 90–100
[2025-03-12] MEDS: FOLIC ACID 1MG TABLET NG SCH (09:41)
[2025-03-12] MEDS ORDERED: PROPOFOL 200MG/20ML VIAL IV ONE (10:16)
[2025-03-12] MEDS ORDERED: EPHEDRINE SULFATE 50MG/ML VIAL ONE (10:16)
[2025-03-12] MEDS ORDERED: PHENYLEPHRINE HCL 10MG/ML 1ML IV ONE (10:16)
[2025-03-12 11:36] LABS: HEMATOCRIT. 27.6 % (42.0-52.0); HEMOGLOBIN. 8.9 g/dL (14.0-18.0); MEAN PLATELET VOLUME 8.8 fl (7.4-10.4); PLATELET 54 x1000/uL (130-400); RED BLOOD CELL COUNT 2.77 mill/uL (4.7-6.1); RED CELL DISTRIBUTION WIDTH 15.5 % (11.6-14.6)
[2025-03-12 11:50] LABS: INR 1.4
[2025-03-12 11:53] LABS: CREATININE 0.7 mg/dL (0.6-1.3); UREA NITROGEN BLOOD 17 mg/dL (9-23)
[2025-03-12] MEDS ORDERED: POTASSIUM CHLORIDE 40 MEQ in DEXT 5% WATER 230 ML IV STA (13:49)
[2025-03-12] MEDS ORDERED: CEFAZOLIN SODIUM 1000MG/VIAL ONE (15:40)
[2025-03-12] MEDS ORDERED: VANCOMYCIN 1.5GM PMX (XELLIA) 300 ML IV PRN (16:00)
[2025-03-12] MEDS: KCL 20MEQ/100ML X 2 FOR TOTAL KCL 40MEQ/200ML IV SCH (17:50)
[2025-03-12] MEDS: POTASSIUM CHLORIDE 20MEQ/PACKET NG SCH (17:51)
[2025-03-13] VITALS (21 sets, daily range): BP systolic 100–166; BP diastolic 56–80; PULSE 86–105; RESP 20–38; TEMP 36.9–38.4; O2SAT 92–100
[2025-03-13] MEDS: METOCLOPRAMIDE HCL 10MG/2ML VIAL IV SCH (06:00)
[2025-03-13] MEDS: IOHEXOL-350 100 ML BOTTLE ONE (08:16)
[2025-03-13 18:12] LABS: BAND% 8.0 % (1.0-6.0); LYMPHOCYTES % MANUAL 7.0 % (20.0-50.0); MONOCYTES % MANUAL 2.0 % (2.0-8.0); NEUTROPHILS % MANUAL 83.0 % (45.0-75.0); PLATELET ESTIMATE DECREASED
[2025-03-13 19:09] LABS: CREATININE 0.7 mg/dL (0.6-1.3); UREA NITROGEN BLOOD 12 mg/dL (9-23)
[2025-03-13 19:12] LABS: PHOSPHORUS 2.7 mg/dL (2.5-4.9)
[2025-03-14] VITALS (24 sets, daily range): BP systolic 124–153; BP diastolic 58–76; PULSE 86–122; RESP 18–32; TEMP 37.1–38; O2SAT 92–100
[2025-03-14 07:16] LABS: HEMATOCRIT. 25.7 % (42.0-52.0); HEMOGLOBIN. 8.4 g/dL (14.0-18.0); MEAN PLATELET VOLUME 8.9 fl (7.4-10.4); PLATELET 75 x1000/uL (130-400); RED BLOOD CELL COUNT 2.56 mill/uL (4.7-6.1); RED CELL DISTRIBUTION WIDTH 16.0 % (11.6-14.6)
[2025-03-14 07:17] LABS: CREATININE 0.6 mg/dL (0.6-1.3); UREA NITROGEN BLOOD 18 mg/dL (9-23)
[2025-03-14] MEDS: KCL 20MEQ/100ML PREMIX 100 ML IV SCH (09:10)
[2025-03-14 13:58] LABS: BAND% 10.0 % (1.0-6.0); LYMPHOCYTES % MANUAL 4.0 % (20.0-50.0); MONOCYTES % MANUAL 3.0 % (2.0-8.0); NEUTROPHILS % MANUAL 83.0 % (45.0-75.0); PLATELET ESTIMATE SLIGHTLY DECREASED
[2025-03-14] MEDS: GUAIFENESIN 200MG/10ML SUGAR FREE UDC PO SCH (18:26)
[2025-03-14] MEDS: LEVOFLOXACIN 750MG PREMIX 150 ML IV SCH (18:26)
[2025-03-14] MEDS: IPRATROPIUM/ALBUTEROL 0.5-3(2.5)MG/3ML NEB HHN SCH (21:16)
[2025-03-15] VITALS (21 sets, daily range): BP systolic 123–150; BP diastolic 56–76; PULSE 91–117; RESP 22–30; TEMP 36.3–36.9; O2SAT 96–100
[2025-03-15 07:16] LABS: BASOPHILS % 0.6 % (0.0-2.0); EOSINOPHILS % 0.6 % (0.0-5.0); HEMATOCRIT. 25.1 % (42.0-52.0); HEMOGLOBIN. 8.2 g/dL (14.0-18.0); LYMPHOCYTES % 10.8 % (20.0-50.0); MEAN PLATELET VOLUME 8.0 fl (7.4-10.4); MONOCYTES % 2.6 % (2.0-8.0); NEUTROPHILS % 85.4 % (40.0-76.0); PLATELET 98 x1000/uL (130-400); RED BLOOD CELL COUNT 2.52 mill/uL (4.7-6.1); RED CELL DISTRIBUTION WIDTH 15.5 % (11.6-14.6)
[2025-03-15 07:36] LABS: CREATININE 0.6 mg/dL (0.6-1.3); UREA NITROGEN BLOOD 22 mg/dL (9-23)
[2025-03-15 09:27] LABS: BG BASE EXCESS 4.0 mmol/L (-2.0-3.0); BG CARBOXYHEMOGLOBIN 0.8 % (0.5-1.5); BG DEOXYHEMOGLOBIN 5.6 % (0.0-5.0); BG FRACTION INSPIRED OXYGEN 40; BG HCO3 ACT 27.6 mmol/L (21.0-28.0); BG METHEMOGLOBIN 0.3 % (0.5-1.5); BG OXYGEN SATURATION 94.3 % (94.0-98.0); BG OXYHEMOGLOBIN 93.3 % (94.0-98.0); BG PCO2 36.9 mmHg (35.0-48.0); BG PEEP (cmH2O) 5.0 cmH2O; BG PH 7.491 (7.350-7.450); BG PO2 69.2 mmHg (83.0-108.0); BG SAMPLE SITE RIGHT RADIAL; BG TIDAL VOLUME(mL) 450.0 mL; BG TOTAL HEMOGLOBIN 8.5 g/dL (13.5-17.5); BG VENT MODE VENT - AC; BG VENT RATE 18.0 set
[2025-03-15] MEDS: KCL 20MEQ/100ML PREMIX 100 ML IV SCH (12:57)
[2025-03-15] MEDS ORDERED: PHEN50VI3 IV (14:16)
[2025-03-15] MEDS ORDERED: PANT40VI IV (14:16)
[2025-03-15] MEDS ORDERED: APIX5TAB PO (14:16)
[2025-03-15] MEDS ORDERED: LEVO750P7 IV (14:16)
[2025-03-15] MEDS ORDERED: LACT-390 PO (14:16)
[2025-03-15] MEDS ORDERED: TOPUD PO (14:16)
[2025-03-15] MEDS ORDERED: LEVE500P IV (14:16)
[2025-03-15] MEDS ORDERED: MYL30 PO (14:16)
[2025-03-15] MEDS ORDERED: DEXTL PO (14:16)
[2025-03-15] MEDS ORDERED: LANTUSUD SUBCUT (14:16)
[2025-03-15] MEDS ORDERED: CLON0.1T PO (14:16)
[2025-03-15] MEDS ORDERED: FOLI-43 NG (14:16)
[2025-03-15] MEDS ORDERED: ONDA4VIA22 IV (14:16)
[2025-03-15] MEDS ORDERED: DOCU-422 PO (14:16)
[2025-03-15] MEDS ORDERED: APIXABAN 5 MG TABLET PO SCH (21:00)
== END 2025-03-15 21:00 | DRG 3 ==
LOC: ER 00:30 → EDBEDREQTM 02:54 → EDBEDREQ 02:54 → EDBEDREQSVC 02:54 → ENRESERV 03:39 → MICUSO 04:06 → 5EST 03-12 02:22
PROVIDERS: ADMIT Internal Medicine; ATTEND Internal Medicine
PROC: 4B02XSZ Measurement of Cardiac Pacemaker, External Approach (ICD-10-PCS; 2025-02-23)
PROC: 30233K1 Transfusion of Nonautologous Frozen Plasma into Peripheral Vein, Percutaneous Approach (ICD-10-PCS; 2025-02-23)
PROC: 30233R1 Transfusion of Nonautologous Platelets into Peripheral Vein, Percutaneous Approach (ICD-10-PCS; 2025-02-23)
PROC: 00C40ZZ Extirpation of Matter from Intracranial Subdural Space, Open Approach (ICD-10-PCS; 2025-02-24)
PROC: 00U207Z Supplement Dura Mater with Autologous Tissue Substitute, Open Approach (ICD-10-PCS; 2025-02-24)
PROC: 00C40ZZ Extirpation of Matter from Intracranial Subdural Space, Open Approach (ICD-10-PCS; 2025-02-26)
PROC: 00U207Z Supplement Dura Mater with Autologous Tissue Substitute, Open Approach (ICD-10-PCS; 2025-02-26)
PROC: 02HV33Z Insertion of Infusion Device into Superior Vena Cava, Percutaneous Approach (ICD-10-PCS; 2025-02-27)
PROC: B548ZZA Ultrasonography of Superior Vena Cava, Guidance (ICD-10-PCS; 2025-02-27)
PROC: 009600Z Drainage of Cerebral Ventricle with Drainage Device, Open Approach (ICD-10-PCS; 2025-02-28)
PROC: 5A1955Z Respiratory Ventilation, Greater than 96 Consecutive Hours (ICD-10-PCS; 2025-02-28)
PROC: 0BH17EZ Insertion of Endotracheal Airway into Trachea, Via Natural or Artificial Opening (ICD-10-PCS; 2025-02-28)
PROC: 0B110F4 Bypass Trachea to Cutaneous with Tracheostomy Device, Open Approach (ICD-10-PCS; principal; 2025-03-11)
PROC: 0DB78ZX Excision of Stomach, Pylorus, Via Natural or Artificial Opening Endoscopic, Diagnostic (ICD-10-PCS; 2025-03-12)
PROC: 0DH63UZ Insertion of Feeding Device into Stomach, Percutaneous Approach (ICD-10-PCS; 2025-03-12)
DX: S06.5X0A Traumatic subdural hemorrhage without loss of consciousness, initial encounter (principal); A41.9 Sepsis, unspecified organism; J69.0 Pneumonitis due to inhalation of food and vomit; J96.01 Acute respiratory failure with hypoxia; G93.49 Other encephalopathy; E72.20 Disorder of urea cycle metabolism, unspecified; I82.613 Acute embolism and thrombosis of superficial veins of upper extremity, bilateral; D68.59 Other primary thrombophilia; E87.0 Hyperosmolality and hypernatremia; D69.6 Thrombocytopenia, unspecified; E83.41 Hypermagnesemia; N17.9 Acute kidney failure, unspecified; Z99.11 Dependence on respirator [ventilator] status; Z79.01 Long term (current) use of anticoagulants; E11.22 Type 2 diabetes mellitus with diabetic chronic kidney disease; D53.9 Nutritional anemia, unspecified; I12.9 Hypertensive chronic kidney disease with stage 1 through stage 4 chronic kidney disease, or unspecified chronic kidney disease; E66.01 Morbid (severe) obesity due to excess calories; G91.9 Hydrocephalus, unspecified; J98.11 Atelectasis; Z20.822 Contact with and (suspected) exposure to COVID-19; I48.0 Paroxysmal atrial fibrillation; E87.6 Hypokalemia; R29.6 Repeated falls; S40.211A Abrasion of right shoulder, initial encounter; E53.8 Deficiency of other specified B group vitamins; E88.09 Other disorders of plasma-protein metabolism, not elsewhere classified; K29.70 Gastritis, unspecified, without bleeding; N18.1 Chronic kidney disease, stage 1; S60.812A Abrasion of left wrist, initial encounter; R13.12 Dysphagia, oropharyngeal phase; Z79.4 Long term (current) use of insulin; Z79.84 Long term (current) use of oral hypoglycemic drugs; Z88.0 Allergy status to penicillin; Z91.81 History of falling; Z93.1 Gastrostomy status; Z95.0 Presence of cardiac pacemaker; Z98.2 Presence of cerebrospinal fluid drainage device; W18.30XA Fall on same level, unspecified, initial encounter; Y93.89 Activity, other specified; Y92.89 Other specified places as the place of occurrence of the external cause; Y99.8 Other external cause status; Z88.1 Allergy status to other antibiotic agents
CPT/HCPCS: 31720; 36415; 36573; 36600; 70496; 70498; 71045; 76700; 80048; 80061; 80076; 80185; 80305; 80320; 81003; 82140; 82375; 82550; 82607; 82728; 82746; 82805; 82962; 83036; 83540; 83550; 83735; 83880; 83930; 83935; 84100; 84132; 84145; 84295; 84300; 84439; 84443; 84478; 84484; 85025; 85027; 85379; 85384; 86850; 86900; 86927; 87070; 87077; 87426; 87804; 88304; 88305; 88312; 88313; 93005; 93306; 93970; 94002; 94003; 94070; 94640; 94660; 94664; 94760; 97161; 98960; 99291; A4606; A4615; C1725; C1758; C9132; J0690; J1100; J1165; J1171; J1580; J1815; J1953; J1956; J2003; J2004; J2250; J2270; J2371; J2405; J2470; J2597; J2704; J2765; J2919; J3010; J3480; J3490; J7030; J7040; J7050; J7060; J7070; J7120; J7121; J7608; P9017; P9034; Q9967; A4217; C1713; G0480; J0131